=== PATIENT | female | born 1990 | race Hispanic/Latino ===

== ENCOUNTER 2017-10-11 08:17 | Emergency (ER) | payer MEDICAID ==
[2017-10-11 08:18] VITALS: BMI 23.8
[2017-10-11 08:27] VITALS: BP 120/89; TEMP 98.6
--- NOTE | 2017-10-11 08:59 | ED PDOC ---
Arrival/HPI - General Chief Complaint: Cough, Cold, Congestion Time Seen by Provider: 10/11/17 08:41 Historian: Patient - History of Present Illness Narrative History of Present Illness (Text): 10/11/17 09:01 You were treated in the ED today for cough with clear white production and nasal congestion since 8 days unimproved after completed Medrol Karl and now having associated shortness of breath otherwise without any fever, nausea/ vomiting/headache/dizziness/chest pain/abdomen pain/numbness/tingling/loss of limb function/pain with urination or any other complaints. You were otherwise breathing without difficulty, comfortable and no cough at bedside. Time/Duration: > week (8 days) Symptom Onset: Gradual Symptom Course: Unchanged Activities at Onset: Light Context: Home Past Medical History - Provider Review Nursing Documentation Reviewed: Yes - Past History Past History: No Previous - Infectious Disease Hx of Infectious Diseases: None - Tetanus Immunization Tetanus Immunization: Unknown - Reproductive Menopause: No - Past Medical History Past Medical History: No Previous - Cardiac Hx Cardiac Disorders: No - Pulmonary Hx Respiratory Disorders: No - Neurological Hx Neurological Disorder: No - HEENT Hx HEENT Disorder: No - Renal Hx Renal Disorder: No - Endocrine/Metabolic Hx Endocrine Disorders: No - Hematological/Oncological Hx Anemia: Yes - Musculoskeletal/Rheumatological Hx Musculoskeletal Disorders: No Hx Falls: No - Gastrointestinal Other/Comment: C DIF - Genitourinary/Gynecological Hx Genitourinary Disorders: No - Psychiatric Hx Anxiety: Yes Hx Depression: Yes Hx Post Traumatic Stress Disorder: Yes Hx Substance Use: No - Past Surgical History Past Surgical History: No Previous - Surgical History Other/Comment: ovarian cyst 2014 - Anesthesia Hx Anesthesia: No Hx Anesthesia Reactions: No Hx Malignant Hyperthermia: No - Suicidal Assessment Feels Threatened In Home Enviroment: No Family/Social History - Physician Review Nursing Documentation Reviewed: Yes Family/Social History: No Known Family HX Smoking Status: Never Smoked Hx Alcohol Use: Yes Hx Substance Use: No Hx Substance Use Treatment: No Allergies/Home Meds Allergies/Adverse Reactions: Allergies Latex, Natural Rubber Adverse Reaction (Verified 01/11/16 14:17) RASH tramadol Adverse Reaction (Verified 01/11/16 14:17) RASH seasonal Allergy (Uncoded 10/11/17 08:28) CONGESTION Review of Systems - Physician Review All systems were reviewed & negative as marked: Yes - Review of Systems Constitutional: Normal. absent: Fevers Eyes: Normal ENT: Sinus Congestion Respiratory: SOB, Cough Cardiovascular: Normal. absent: Chest Pain Gastrointestinal: Normal. absent: Abdominal Pain, Diarrhea, Nausea, Vomiting Genitourinary Female: Normal. absent: Dysuria Musculoskeletal: Normal Skin: Normal Neurological: Normal. absent: Headache, Dizziness Endocrine: Normal Hemo/Lymphatic: Normal Psychiatric: Normal Physical Exam Vital Signs Reviewed: Yes Vital Signs Temp Pulse Resp BP Pulse Ox 10/11/17 09:40 95 H 18 96 10/11/17 08:23 98.6 F 102 H 20 120/89 100 Temperature: Afebrile Blood Pressure: Normal Pulse: Tachycardic Respiratory Rate: Normal Appearance: Positive for: Well-Appearing, Non-Toxic, Comfortable Pain Distress: None Mental Status: Positive for: Alert and Oriented X 3 - Systems Exam Head: Present: Atraumatic, Normocephalic Pupils: Present: PERRL Extroacular Muscles: Present: EOMI Conjunctiva: Present: Normal Mouth: Present: Moist Mucous Membranes Nose (Internal): Present: Other (Nasal congestion) Respiratory/Chest: Present: Clear to Auscultation, Good Air Exchange. No: Respiratory Distress, Accessory Muscle Use Cardiovascular: Present: Regular Rate and Rhythm, Normal S1, S2. No: Murmurs Abdomen: No: Tenderness, Distention, Peritoneal Signs Upper Extremity: Present: Normal Inspection. No: Cyanosis, Edema Lower Extremity: Present: Normal Inspection. No: Edema Neurological: Present: GCS=15, CN II-XII Intact, Speech Normal Skin: Present: Warm, Dry, Normal Color. No: Rashes Psychiatric: Present: Alert, Oriented x 3, Normal Insight, Normal Concentration Medical Decision Making ED Course and Treatment: 10/11/17 08:59 Impression: You were treated in the ED today for cough with clear white production and nasal congestion since 8 days unimproved after completed Medrol Karl and now having associated shortness of breath otherwise without any fever, nausea/ vomiting/headache/dizziness/chest pain/abdomen pain/numbness/tingling/loss of limb function/pain with urination or any other complaints. You were otherwise breathing easily at bedside, smiling with no cough, good strength/sensation, walking easily, clear lungs, no abdomen tenderness, your vision was such no fever temp 98.6 F, tachycardia 102 , stable breathing rate 20, excellent oxygen level 100% room air, normal blood pressure 120/89, radiology chest xray no active disease, we flushed your eyes done in the ED with improvement, counselled to rest and use humidifier daily for breathing relief and thus discharged home. 1. Recommend prednisone as directed for breathing/coughing relief. Recommend albuterol inhaler as directed for breathing/reactive coughing relief. 2. Recommend if after 3-5 days persistent symptoms or change in cough sputum color then start azithromycin as directed for infection control. 3. Recommend follow-up primary care 3-5 days to review symptoms. 4. If any worsening pain, fever, chills, nausea, vomiting, difficulty breathing, numbness , loss of limb function, pain with urination or any medical condition then return to the ED. Plan: -- Chest X-ray -- Reassessment and disposition Progress Note: cxr no active disease 10/11/17 09:49 no sign of thrombosis. Reassessment Condition: Re-examined, Improved - RAD Interpretation Radiology Orders: 10/11/17 08:56 CHEST TWO VIEWS (PA/LAT) [RAD] Stat Field Captain: Radiologist - Medication Orders Current Medication Orders: Prednisone (Prednisone Tab) 60 mg PO STAT ONE Stop: 10/11/17 09:45 - Scribe Statement The provider has reviewed the documentation as recorded by the Scribe Aftab Hussein. All medical record entries made by the Scribe were at my direction and personally dictated by me. I have reviewed the chart and agree that the record accurately reflects my personal performance of the history, physical exam, medical decision making, and the department course for this patient. I have also personally directed, reviewed, and agree with the discharge instructions and disposition. Disposition/Present on Arrival - Present on Arrival Any Indicators Present on Arrival: No History of DVT/PE: No History of Uncontrolled Diabetes: No Urinary Catheter: No History of Decub. Ulcer: No History Surgical Site Infection Following: None - Disposition Have Diagnosis and Disposition been Completed?: Yes Diagnosis: Upper respiratory disease, Bronchitis Disposition: HOME/ ROUTINE Disposition Time: 09:46 Condition: IMPROVED Additional Instructions: You were treated in the ED today for cough with clear white production and nasal congestion since 8 days unimproved after completed Medrol Karl and now having associated shortness of breath otherwise without any fever, nausea/ vomiting/headache/dizziness/chest pain/abdomen pain/numbness/tingling/loss of limb function/pain with urination or any other complaints. You were otherwise breathing easily at bedside, smiling with no cough, good strength/sensation, walking easily, clear lungs, no abdomen tenderness, your vision was such no fever temp 98.6 F, tachycardia 102 , stable breathing rate 20, excellent oxygen level 100% room air, normal blood pressure 120/89, radiology chest xray no active disease, we flushed your eyes done in the ED with improvement, counselled to rest and use humidifier daily for breathing relief and thus discharged home. 1. Recommend prednisone as directed for breathing/coughing relief. Recommend albuterol inhaler as directed for breathing/reactive coughing relief. 2. Recommend if after 3-5 days persistent symptoms or change in cough sputum color then start azithromycin as directed for infection control. 3. Recommend follow-up primary care 3-5 days to review symptoms. 4. If any worsening pain, fever, chills, nausea, vomiting, difficulty breathing, numbness , loss of limb function, pain with urination or any medical condition then return to the ED. Prescriptions: Albuterol HFA [Ventolin HFA 90 mcg/actuation (8 g)] 1 puff IH Q6 PRN 5 Days #1 ea PRN Reason: reactive cough relief Azithromycin [Z-Karl] 250 mg PO DAILY 5 Days #6 tab predniSONE [Prednisone] See Taper PO DAILY 5 Days #5 tab Forms: [employer] ([place]), WORK NOTE
--- NOTE | 2017-10-11 09:24 | RAD ---
HISTORY: 26F, cough COMPARISON: Correlation made with radiographs of the thoracic spine 04/27/2013 which partially imaged chest. TECHNIQUE: Chest PA and lateral FINDINGS: LUNGS: No active pulmonary disease. PLEURA: No significant pleural effusion identified. No pneumothorax apparent. CARDIOVASCULAR: Normal. OSSEOUS STRUCTURES: No significant abnormalities. VISUALIZED UPPER ABDOMEN: Normal. OTHER FINDINGS: In situ bilateral nipple rings. IMPRESSION: No active disease.
[2017-10-11 09:41] VITALS: PULSE 95; O2SAT 96
[2017-10-11 10:00] VITALS: RESP 16
== END 2017-10-11 10:00 | disposition home or self-care (01) ==
LOC: ED 08:17
DX: J40 Bronchitis, not specified as acute or chronic (principal); J39.9 Disease of upper respiratory tract, unspecified

== ENCOUNTER 2018-01-05 10:37 | Emergency (ER) | payer OTHER, MEDICAID ==
[2018-01-05 10:50] VITALS: BMI 25.3
[2018-01-05 10:57] VITALS: RESP 18; TEMP 98.7; O2SAT 99
--- NOTE | 2018-01-05 11:00 | ED PDOC ---
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 She was at [facility] reaching for a scale on the top shelf when it fell out of the box on to her R foot. She was wearing shoes at the time. She states that there is a numbness/tingling type pain on the dorsum of her R foot where the scale hit her. It is painful to move her toes and painful to dorsiflex her foot. Otherwise she was able to bear weight on it partially when getting out of bed earlier. (Jose Luis Funes) Past Medical History - Provider Review Nursing Documentation Reviewed: Yes - Travel History Have you recently traveled outside [place] w/in the past 3 mons?: No - Past History Past History: No Previous - Infectious Disease Hx of Infectious Diseases: None - Tetanus Immunization Tetanus Immunization: Unknown - Past Medical History Past Medical History: No Previous - Cardiac Hx Cardiac Disorders: No - Pulmonary Hx Respiratory Disorders: No - Neurological Hx Neurological Disorder: No - HEENT Hx HEENT Disorder: No - Renal Hx Renal Disorder: No - Endocrine/Metabolic Hx Endocrine Disorders: No - Hematological/Oncological Hx Anemia: Yes - Musculoskeletal/Rheumatological Hx Musculoskeletal Disorders: No Hx Falls: No - Gastrointestinal Other/Comment: C DIF - Genitourinary/Gynecological Hx Genitourinary Disorders: No - Psychiatric Hx Anxiety: Yes Hx Depression: Yes Hx Post Traumatic Stress Disorder: Yes Hx Substance Use: No - Past Surgical History Past Surgical History: No Previous - Surgical History Other/Comment: ovarian cyst 2014 - Anesthesia Hx Anesthesia: No Hx Anesthesia Reactions: No Hx Malignant Hyperthermia: No - Suicidal Assessment Feels Threatened In Home Enviroment: No <Jose Luis Funes - Last Filed: 01/05/18 12:21> Family/Social History - Physician Review Nursing Documentation Reviewed: Yes Family/Social History: Diabetes (father and mother), Hypertension (father and mother) Smoking Status: Never Smoked Hx Alcohol Use: Yes Hx Substance Use: No Hx Substance Use Treatment: No <Jose Luis Funes - Last Filed: 01/05/18 12:21> Allergies/Home Meds <Jose Luis Funes - Last Filed: 01/05/18 12:21> <Jose J Taylor - Last Filed: 01/05/18 14:55> Allergies/Adverse Reactions: Allergies Latex, Natural Rubber Adverse Reaction (Verified 01/05/18 10:49) RASH tramadol Adverse Reaction (Verified 01/05/18 10:49) RASH seasonal Allergy (Uncoded 01/05/18 10:49) CONGESTION Home Medications: Home Meds Medication Instructions Recorded Confirmed No Known Home Med 01/05/18 01/05/18 Review of Systems - Review of Systems Constitutional: absent: Fatigue, Fevers Eyes: absent: Vision Changes ENT: absent: Sore Throat, Rhinorrhea Respiratory: absent: SOB, Cough Cardiovascular: absent: Chest Pain, ANNE, Syncope Gastrointestinal: absent: Abdominal Pain, Nausea, Vomiting Genitourinary Female: absent: Dysuria Musculoskeletal: absent: Joint Swelling Skin: absent: Rash, Pruritis Neurological: absent: Headache, Dizziness Endocrine: absent: Diaphoresis Hemo/Lymphatic: absent: Adenopathy Psychiatric: absent: Anxiety, Depression <Jose Luis Funes - Last Filed: 01/05/18 12:21> Physical Exam Vital Signs Reviewed: Yes Temperature: Afebrile Blood Pressure: Normal Pulse: Regular Respiratory Rate: Normal Appearance: Positive for: Well-Appearing, Non-Toxic, Comfortable Pain Distress: None Mental Status: Positive for: Alert and Oriented X 3 - Systems Exam Head: Present: Atraumatic, Normocephalic Pupils: Present: PERRL Extroacular Muscles: Present: EOMI Conjunctiva: Present: Normal Ears: Present: Normal Mouth: Present: Moist Mucous Membranes Pharnyx: Present: Normal. No: ERYTHEMA, EXUDATE Nose (External): Present: Atraumatic Neck: Present: Normal Range of Motion. No: JVD Respiratory/Chest: Present: Clear to Auscultation. No: Wheezes, Rales, Rhonchi Cardiovascular: Present: Regular Rate and Rhythm, Normal S1, S2. No: Murmurs, Rub, Gallop Abdomen: No: Tenderness, Rebound, Guarding Upper Extremity: Present: Normal Inspection. No: Cyanosis, Edema Lower Extremity: Present: Tenderness (tenderness to dorsiflexion of R foot, no tenderness to plantar flexion, inversion, or eversion), Neurovascularly Intact, Capillary Refill < 2 s. No: Erythema, Deformity Neurological: Present: Speech Normal Skin: Present: Warm, Dry Psychiatric: Present: Alert, Oriented x 3 <Jose Luis Funes - Last Filed: 01/05/18 12:21> Vital Signs Temp Pulse Resp BP Pulse Ox 01/05/18 12:17 86 18 115/65 99 01/05/18 10:50 98.7 F 91 H 18 113/66 99 Medical Decision Making - RAD Interpretation Photograph Mounter: ED Physician <Jose Luis Funes - Last Filed: 01/05/18 12:21> <Jose J Taylor - Last Filed: 01/05/18 14:55> ED Course and Treatment: 01/05/18 11:05 -Will get R foot xray to r/o acute fracture -Motrin 600 mg for pain 01/05/18 12:00 -Foot xray negative for fx -Will nellie wrap, discharge with crutches -Follow up with ortho if not improved after 2 weeks (Jose Luis Funes) Patient Seen With Resident: In agreement with resident note which contains more details about the patient. Patient was seen and evaluated with resident. Came up with plan and treatment together. 27 year old female presents complaining of pain to her right foot s/p a scale falling on her foot from a shelf. Plan: -- motrin tab -- Foot X-ray 3V -- Reassess and disposition . (Jose J Taylor) - RAD Interpretation Narrative RAD Interpretations (Text): 01/05/18 12:01 Foot xray negative for acute fracture (Jose Luis Funes) Radiology Orders: 01/05/18 10:56 FOOT RIGHT 3 VIEWS ROUTINE [RAD] Stat - Medication Orders Current Medication Orders: Discontinued Medications Ibuprofen (Motrin Tab) 600 mg PO STAT STA Stop: 01/05/18 10:58 <Jose Luis Funes - Last Filed: 01/05/18 12:21> - PA / WAFER SLICER / Resident Statement / has reviewed & agrees with the documentation as recorded. / has examined the patient and agrees with the treatment plan. - Scribe Statement The provider has reviewed the documentation as recorded by the Scribe <Jose J Taylor - Last Filed: 01/05/18 14:55> - Scribe Statement Ida Carmichael Provider Scribe Attestation: All medical record entries made by the Scribe were at my direction and personally dictated by me. I have reviewed the chart and agree that the record accurately reflects my personal performance of the history, physical exam, medical decision making, and the department course for this patient. I have also personally directed, reviewed, and agree with the discharge instructions and disposition. (Jose J Taylor) Disposition/Present on Arrival - Present on Arrival Any Indicators Present on Arrival: No History of DVT/PE: No History of Uncontrolled Diabetes: No Urinary Catheter: No History of Decub. Ulcer: No History Surgical Site Infection Following: None - Disposition Have Diagnosis and Disposition been Completed?: Yes Disposition Time: 12:02 Patient Plan: Discharge <Jose Luis Funes - Last Filed: 01/05/18 12:21> <Jose J Taylor - Last Filed: 01/05/18 14:55> - Disposition Diagnosis: Foot trauma, Foot sprain Disposition: HOME/ ROUTINE Condition: IMPROVED Discharge Instructions (ExitCare): Foot Sprain (DC) Referrals: Samina Ellsworth DO [Primary Care Provider] - Follow up with primary Forms: [facility] Connect (Greek), WORK NOTE
[2018-01-05 12:17] VITALS: BP 115/65; PULSE 86
--- NOTE | 2018-01-05 13:14 | RAD ---
Date of service: 01/05/2018 PROCEDURE: Right Foot Radiographs. HISTORY: trauma COMPARISON: None. FINDINGS: BONES: Normal. No fracture. JOINTS: Normal. SOFT TISSUES: Normal. OTHER FINDINGS: None. IMPRESSION: Normal right foot radiographs.
== END 2018-01-05 12:42 | disposition home or self-care (01) ==
LOC: ED 10:37
DX: S93.601A Unspecified sprain of right foot, initial encounter (principal); W20.8XXA Other cause of strike by thrown, projected or falling object, initial encounter; Y92.512 Supermarket, store or market as the place of occurrence of the external cause